=== PATIENT | female | born 1975 | race African-American/Black ===

== ENCOUNTER 2017-06-14 20:45 | Emergency (ER) | payer SELFPAY ==
[2017-06-14] MEDS ORDERED: Ibuprofen 800 MG TAB ONE (22:02)
[2017-06-14] MEDS ORDERED: Clindamycin 150 MG CAP ONE (22:02)
== END 2017-06-14 22:08 | disposition home or self-care (01) ==
LOC: MADERS 20:45
DX: K04.7 Periapical abscess without sinus (principal); F41.9 Anxiety disorder, unspecified; F17.210 Nicotine dependence, cigarettes, uncomplicated
CPT/HCPCS: 99282